=== PATIENT | female | born 1965 | race Caucasian/White ===

== ENCOUNTER 2018-06-19 18:28 | Emergency (ER) | payer OTHER ==
[~2018-06-19] VITALS: Ht 180.3 cm; Wt 90.7 kg
[~2018-06-19 18:28] MED LIST: CLEOCIN HCL150 MG PO; HYDRALAZINE 2525 MG PO; LEXAPRO20 MG; NORCO 5-325 TA1 EACH PO; PREDNISONE 1 MG1 M1; VICODIN 5-3001 EACH PO; VISTARIL 25 MG25 M1 PO; ZPAK
[2018-06-19] MEDS ORDERED: VYVANSE70 MG PO (18:39)
[2018-06-19] MEDS ORDERED: ACYCLOVIR 800800 MG PO (18:47)
[2018-06-19] MEDS ORDERED: ANTIBIOTIC28.4 GM TOP (18:47)
[2018-06-19 18:54] VITALS: BP 130/95
== END 2018-06-19 18:55 | disposition home or self-care (01) ==
LOC: M.ERS 18:28
DX: J34.0 Abscess, furuncle and carbuncle of nose (principal); K13.79 Other lesions of oral mucosa; Z88.0 Allergy status to penicillin

== ENCOUNTER 2019-06-05 19:47 | Observation (INO) | payer OTHER ==
[~2019-06-05] VITALS: Ht 180.3 cm; Wt 85.5 kg
[~2019-06-05 19:47] MED LIST changes: +ACYCLOVIR 800800 MG PO; +ANTIBIOTIC28.4 GM TOP; +VYVANSE70 MG PO
[2019-06-05 19:55] VITALS: BP 166/78
[2019-06-05] MEDS ORDERED: LEXAPRO 10 MG T10 M2 PO (19:58)
[2019-06-05 20:20] VITALS: BP 123/61
[2019-06-05 21:47] LABS: ABSOLUTE BASOPHILS 0.1 thou/uL (0.0-0.2); ABSOLUTE EOSINOPHILS 0.2 thou/uL (0.0-0.7); ABSOLUTE LYMPHOCYTES 1.7 thou/uL (0.8-5.3); ABSOLUTE MONOCYTES 0.4 thou/uL (0.0-1.2); ABSOLUTE NEUTROPHILS 5.7 thou/uL (1.6-8.1); BASOPHILS 0.6 %; EOSINOPHILS 1.9 %; HEMATOCRIT 33.1 % (37.0-47.0); HEMOGLOBIN 11.1 gm/dL (12.0-15.0); LYMPHOCYTES 21.6 %; MCH 26.9 pg (26.0-34.0); MCHC 33.5 g/dL (28.0-37.0); MCV 80.2 fL (80.0-100.0); MONOCYTES 5.2 %; MPV 7.8 fl. (7.2-11.1); NUCLEATED RBCS 0 /100WBC; PLATELET COUNT* 336 thou/uL (150-400); POLYS 70.7 %; RBC 4.12 mil/uL (4.20-5.00); RDW-CV 15.3 % (10.5-14.5); WBC 8.1 thou/uL (4.0-11.0)
[2019-06-05 21:56] LABS: CALCIUM 8.7 mg/dL (8.5-10.1); CREATININE 0.6 mg/dL (0.6-1.3); POTASSIUM 3.7 mmol/L (3.5-5.1)
[2019-06-05 22:01] LABS: ALBUMIN 3.4 g/dL (3.4-5.0); TOTAL BILIRUBIN 0.2 mg/dL (<0.1-1.0)
[2019-06-05 22:09] VITALS: BP 142/87
[2019-06-06 04:00] VITALS: BP 112/66
[2019-06-06 07:25] VITALS: BP 101/51
[2019-06-06 09:21] LABS: HEMATOCRIT 30.7 % (37.0-47.0); HEMOGLOBIN 10.3 gm/dL (12.0-15.0); MCH 26.7 pg (26.0-34.0); MCHC 33.4 g/dL (28.0-37.0); MCV 79.7 fL (80.0-100.0); RBC 3.85 mil/uL (4.20-5.00); RDW-CV 15.1 % (10.5-14.5); WBC 4.7 thou/uL (4.0-11.0)
[2019-06-06 09:33] LABS: CALCIUM 7.6 mg/dL (8.5-10.1); CREATININE 0.6 mg/dL (0.6-1.3); POTASSIUM 3.9 mmol/L (3.5-5.1)
[2019-06-06 15:49] VITALS: BP 131/78
[2019-06-06 20:11] VITALS: BP 118/73
[2019-06-07 07:10] VITALS: BP 131/70
[2019-06-07 08:50] VITALS: BP 131/70
[2019-06-07 12:34] VITALS: BP 131/70
[2019-06-07 13:04] VITALS: BP 131/70
== END 2019-06-07 13:06 | disposition home or self-care (01) ==
LOC: M.ERS 19:47 → M.TBA-ER 21:37 → M.ORTHSURG 21:37 → M.TBA-ER 21:48 → M.ORTHSURG 22:15
PROVIDERS: Nurse Practitioner Psychiatric/Mental Health; Surgery; ADMIT Internal Medicine
DX: T18.8XXA Foreign body in other parts of alimentary tract, initial encounter (principal); F32.9 Major depressive disorder, single episode, unspecified; K20.9 Esophagitis, unspecified; R11.0 Nausea; F17.210 Nicotine dependence, cigarettes, uncomplicated; Y92.89 Other specified places as the place of occurrence of the external cause